=== PATIENT | female | born 1975 | race Caucasian/White ===

== ENCOUNTER 2018-04-15 13:34 | Emergency (ER) | payer MEDICAID ==
[~2018-04-15] VITALS: Ht 162.6 cm; Wt 101.7 kg
[2018-04-15] MEDS ORDERED: SODIUM CHLORIDE 0.9% 1,000 ML IV ONE (15:09)
[2018-04-15] MEDS ORDERED: ONDANSETRON HCL 4MG/2ML VIAL IV STA (15:09)
[2018-04-15] MEDS ORDERED: MECLIZINE 25MG TABLET PO ONE (15:15)
[2018-04-15 16:01] LABS: CLARITY URINE TURBID (CLEAR); COLOR URINE YELLOW (YELLOW); KETONES URINE NEGATIVE (NEGATIVE); LEUKOCYTE ESTERASE URINE NEGATIVE (NEGATIVE); NITRITE URINE NEGATIVE (NEGATIVE); OCCULT BLOOD URINE NEGATIVE (NEGATIVE); PH URINE 7.5 (4.5-8.0); PROTEIN URINE NEGATIVE (NEGATIVE); SPECIFIC GRAVITY URINE 1.017 (1.005-1.030); UROBILINOGEN URINE 0.2 E.U./dL (0.2-1.0)
[2018-04-15 16:26] LABS: BASOPHILS % 0.6 % (0.0-2.0); EOSINOPHILS % 0.6 % (0.0-5.0); HEMATOCRIT. 41.7 % (36.0-48.0); HEMOGLOBIN. 14.1 g/dL (12.0-16.0); LYMPHOCYTES % 15.5 % (20.0-50.0); MEAN CORPUSCULAR HEMOGLOBIN 30.8 pg (28.0-32.0); MEAN CORPUSCULAR VOLUME 91.3 fL (81.0-99.0); MEAN PLATELET VOLUME 9.5 fl (7.4-10.4); MONOCYTES % 6.3 % (2.0-8.0); PLATELET 302 x1000/uL (130-400); RED BLOOD CELL COUNT 4.57 mill/uL (4.2-5.4)
[2018-04-15 16:30] LABS: CHLORIDE 103 mEq/L (98-107)
[2018-04-15] MEDS ORDERED: HYDROCHLOROTHIAZIDE 12.5MG CAPSULE PO ONE (17:15)
[2018-04-15] MEDS ORDERED: KETOROLAC 30MG/ML VIAL IV ONE (17:15)
[2018-04-15] MEDS ORDERED: ONDANSETRON HCL 4MG/2ML VIAL IV ONE (17:15)
[2018-04-15 18:27] VITALS: BP 158/99
== END 2018-04-15 19:07 | disposition home or self-care (01) ==
LOC: ER 13:34
DX: R42 Dizziness and giddiness (principal)
CPT/HCPCS: 36415; 80053; 81003; 81025; 85025; 93005; 96361; 96374; 96375; 96376; 99285; J1885; J2405; J7030; J8597